=== PATIENT | female | born 1985 | race Caucasian/White ===

== ENCOUNTER → 2019-01-02 | Outpatient (REF) | payer OTHER | LOC: M SFHCLERA 10:35 | PROVIDERS: ATTEND Nurse Practitioner Family | DX: R53.81 Other malaise (principal) ==

== ENCOUNTER → 2020-03-03 | Outpatient (CLI) | payer SELFPAY | LOC: M LABCAHC 10:10 | PROVIDERS: ATTEND Pediatrics | DX: Z11.59 Encounter for screening for other viral diseases (principal) ==